=== PATIENT | female | born 1935 ===

== ENCOUNTER 2017-01-14 06:54 | Day surgery (SDC) | payer MEDICARE, OTHER ==
[2017-01-12 10:48] VITALS: BMI 20.6
[2017-01-14] MEDS ORDERED: Propofol 10 mg/ml Inj (20 ML) ONE (09:01)
[2017-01-14] MEDS ORDERED: Etomidate 20 mg/10ml Inj IV ONE (09:01)
[2017-01-14 09:29] VITALS: TEMP 97.1
[2017-01-14 09:34] VITALS: O2SAT 100
[2017-01-14 11:39] VITALS: RESP 15
[2017-01-14 12:14] VITALS: BP 127/74; PULSE 61
== END 2017-01-14 10:30 | disposition home or self-care (01) ==
LOC: C.ENDO 06:54
PROVIDERS: ATTEND Internal Medicine Gastroenterology
DX: K26.9 Duodenal ulcer, unspecified as acute or chronic, without hemorrhage or perforation (principal); K29.70 Gastritis, unspecified, without bleeding
CPT/HCPCS: 43239; 88305; 88342; J2001; J2704